=== PATIENT | male | born 1950 | race Caucasian/White ===

== ENCOUNTER 2021-02-23 20:25 | Observation (INO) | payer MEDICARE, MEDICAID ==
[~2021-02-23] VITALS: Ht 182.9 cm; Wt 61.1 kg
[2021-02-23] MEDS ORDERED: BENZONATATE 100 MG (TESSALON) CAPSULE PO PRN (20:30)
[2021-02-23] MEDS ORDERED: ONDANSETRON 4 MG/2 ML (SDV) Z0FRAN IV PRN (20:30)
[2021-02-23] MEDS ORDERED: ANTACID SUSP 30 ML UDC (MYLANTA) PO PRN (20:30)
[2021-02-23] MEDS ORDERED: MILK OF MAGNESIA 400 MG/5 ML 30 ML UDC PO PRN (20:30)
[2021-02-23] MEDS: FUROSEMIDE 40 MG/4 ML INJ (LASIX) IV SCH (23:49)
[2021-02-24] VITALS (8 sets, daily range): BP systolic 105–126; BP diastolic 57–79
--- NOTE | 2021-02-24 07:42 | Diagnostic Imaging Report ---
INDICATION: Pneumonia and congestive heart failure. No prior examinations are available for comparison. FINDINGS: There is mild cardiomegaly. There is some venous congestion. There are bilateral perihilar infiltrates. There is no pleural effusion or pneumothorax. Mediastinum is unremarkable. IMPRESSION: Bilateral perihilar infiltrates. Cardiomegaly and some central pulmonary venous congestion. Dictated by: Dictated on workstation # [id number]
[2021-02-24] MEDS: ASPIRIN 81 MG CHEW (CHILDREN'S ASA) PO SCH (08:34)
[2021-02-24] MEDS: FUROSEMIDE 40 MG/4 ML INJ (LASIX) IV SCH ×2 (08:34→21:09)
[2021-02-24] MEDS ORDERED: THIAMINE 100 MG (VITAMIN B-1) TAB PO ONE (10:15)
[2021-02-24] MEDS ORDERED: FOLIC ACID 1 MG TAB PO ONE (10:15)
[2021-02-24 10:27] LABS: HEMATOCRIT 38 % (40-54); MEAN CORPUSCULAR HEMOGLOBIN 29 pg (25-34); MEAN CORPUSCULAR HGB CONC 32 g/dL (32-36); MEAN CORPUSCULAR VOLUME 90 fL (80-99); PLATELET COUNT 454 10^3/uL (130-400)
--- NOTE | 2021-02-24 10:31 | History & Physical-Hospitalist ---
History of Present Illness HPI/Chief Complaint Pt is a 70yoCM with a PMH of a-fib, HTN, chronic alcohol use, tobacco abuse who presented to the ER due to back and shortness of breath. He is an exceptionally poor historian and can tell me very little of his medical history and his acute illness. Most history is obtained from the ER report and by discussing his case with his PCP Doreen Faustin [facility] in [place]. He states he had back pain and that gave him shortness of breath. Otherwise he has no complaints. We discussed his imaging from [place] and concern for cancer. He tells me that it is not cancer. When asked if he has had a biopsy he said no. I spoke with his PCNP who states he has had a biopsy done and they thought the lung mass was due to infection. She did not have culture results available. She reports he is supposed to have a lobectomy done and is off anticoagulation for that surgery but he has not called his insurance to get it approved. Source: patient Date Seen 02/24/21 Time Seen by a Provider: 10:08 Attending Physician Cheri Cox MD PCP No,Local Physician Referring Physician Date of Admission Feb 23, 2021 at 23:06 Home Medications & Allergies Home Medications Reviewed patient Home Medication Reconciliation performed by pharmacy medication reconciliations petroleum laboratory technician and/or nursing. Patients Allergies have been reviewed. Allergies Allergies Coded Allergies No Known Drug Allergies (Unverified02/24/21) Past Nlgeosz-Kztgeb-Nyqygp Hx Patient Social History Tobacco Use?: Yes Tobacco type used: Cigarettes Smoking Status: Current Everyday Smoker Use of E-Cig and/or Vaping dev: No Substance use?: No Substance frequency: Daily Alcohol Use?: Yes Alcohol type: Beer Alcohol Frequency: Once in a while Pt feels they are or have been: No Immunizations Up To Date First/Initial COVID19 Vaccinat: Has not had- declined Current Status Advance Directives: No Communicates: Verbally Primary Language: Slovak Preferred Spoken Language: Slovak Family Medical History Reviewed Nursing Family Hx No Pertinent Family Hx Review of Systems Constitutional: no symptoms reported Physical Exam Physical Exam Vital Signs Vital Signs - First Documented 02/23/21 02/24/21 02/24/21 23:06 00:00 04:16 Temp 36.2 Pulse 72 Resp 20 B/P (MAP) 112/71 (85) Pulse Ox 92 O2 Delivery Room Air O2 Flow Rate 2.00 Capillary Refill : Height, Weight, BMI Height: '" Weight: lbs. oz. kg; 18.80 BMI Method: General Appearance: No Apparent Distress, Chronically ill, Thin HEENT: PERRL/EOMI, Moist Mucous Membranes Neck: Normal Inspection, Supple Respiratory: Lungs Clear, No Accessory Muscle Use Cardiovascular: Regular Rate, Rhythm, No Murmur Gastrointestinal: Normal Bowel Sounds, Soft Extremity: Normal Capillary Refill, No Calf Tenderness, No Pedal Edema Neurologic/Psychiatric: Alert, Oriented x3 Skin: Normal Color, Warm/Dry Results Results/Procedures Labs Patient resulted labs reviewed. Imaging: Reviewed Imaging Report Imaging [facility] [place], [place] NAME: TRUDY VANG [facility] REC#: [id number] PT STATUS: ADM Regan : 1950 PHYSICIAN: CHERI COX MD ADMIT DATE: 02/23/21 Signed Date of Exam:02/24/21 CHEST 1 VIEW, AP/PA ONLY INDICATION: Pneumonia and congestive heart failure. No prior examinations are available for comparison. FINDINGS: There is mild cardiomegaly. There is some venous congestion. There are bilateral perihilar infiltrates. There is no pleural effusion or pneumothorax. Mediastinum is unremarkable. IMPRESSION: Bilateral perihilar infiltrates. Cardiomegaly and some central pulmonary venous congestion. Dictated by: Dictated on workstation # [id number] Dict: 02/24/21 0738 Trans: 02/24/21 0825 [id number] Interpreted by: GIANCARLO AMBRIZ MD Electronically signed by: GIANCARLO AMBRIZ MD 02/24/21 0825 Assessment/Plan Admission Diagnosis CHF exacerbation Admission Status: Observation Reason for Inpatient Admission: see below Assessment and Plan CHF exacerbation HTN A-fib Continue IV lasix Cardiology consulted, appreciate recs Echo pending Discussed with Dr John Continue home meds but Eliquis on hold for lobectomy per his [facility] Lung mass Unclear etiology Per report from ER physician desiree neoplastic on imaging [facility] CR[facility]HER reported infectious etiology but cultures negative and he is not on antibiotis as an outpatient Will attempt to have imaging clouded over from [place] Has follow up with Dr Diallo for lobectomy Hypokalemia will replace Check Mag Alcohol abuse Will start on thiamine, folic acid CHERI COX MD Feb 24, 2021 10:31
[2021-02-24 10:46] LABS: CREATININE SERUM 1.03 MG/DL (0.60-1.30)
[2021-02-24] MEDS ORDERED: KCL 20 MEQ TAB (K-DUR) PO NR (14:45)
[2021-02-24] MEDS ORDERED: RT-ALBUTEROL/IPRATROPIUM 3 ML (DUONEB) VIAL INH PRN (16:45)
--- NOTE | 2021-02-24 18:09 | Consultation-Cardiology ---
HPI-Cardiology Cardiology Consultation: Date of Consultation 02/24/2021 Date of Admission 02/23/2021 Attending Physician Holly Cox MD Admitting Physician No,Local Physician Consulting Physician VISHAL HAMILTON JR, MD HPI: Time Seen by a Provider: 18:05 Chief Complaint: Reason for consultation: Heart failure. Christopher is a 70-year-old male with a history of atrial fibrillation of unknown duration. He presented to the hospital in [place], [place] with increasing shortness of breath and some atypical chest discomfort. He was felt to be in heart failure and was transferred to our facility for further evaluation. He states he follows with a board of directors in [place] but he cannot remember the name. When I saw the pa ulises in medical/surgical unit he stated that his breathing had improved. However, he is very vague about his medical history and the events leading up to his hospitalization. He denies paroxysmal nocturnal dyspnea, orthopnea, palpitations, lightheadedness, syncope, or lower extremity edema. However, due to his poor recollection, his answers may not be reliable. He smokes approxima tely 1 pack of cigarettes per day. Review of Systems-Cardiology Review of Systems Other comments Review of 10 organ systems is as per the history of present illness, otherwise negative. However, as above, given his poor recall, his answers may not be reliable. HRX-Ltzvrs-Hyaceh Hx Patient Social History Smoking Status: Current Everyday Smoker Have you traveled recently?: No Alcohol Use?: Yes Pt feels they are or have been: No Tobacco type used: Cigarettes Past Medical History PMH As described under Assessment. Family Medical History Family Medical History: The patient does not know of any family history of premature coronary artery disease. Allergies and Home Medications Allergies Coded Allergies: No Known Drug Allergies (Unverified , 02/24/21) Patient Home Medication List Home Medication List Reviewed: Yes Exam Vital Signs Vital Signs Date Time Temp Pulse Resp B/P (MAP) Pulse Ox O2 Delivery O2 Flow Rate FiO2 02/24/21 16:34 36.4 89 90 21 02/24/21 15:06 22 109/58 (75) Room Air 02/24/21 04:16 2.00 Physical Exam General: Alert. No acute distress. Well nourished and appears stated age. He is disheveled. Eye: Extraocular movements are intact. Conjunctivae are clear. There are no xanthelasma. HENT: Normocephalic. Atraumatic. Carotid pulsations 2/2 without bruits. Neck: Jugular venous pressure does not appear elevated. No thyromegaly appreciated. Respiratory: Lungs have scattered inspiratory wheezes. Respirations are non- labored. Breath sounds are equal. Symmetrical chest wall expansion. Cardiovascular: Normal rate. Irregular rhythm. No murmur. No gallop. Point of maximal impulse is not appear displaced. Good pulses equal in all extremities. No edema. Gastrointestinal: Soft. Normal bowel sounds. Skin: Skin turgor is normal. There is no pallor. Musculoskeletal: No kyphosis or scoliosis appreciated. Neurologic: Alert and oriented to person, place, time. Cranial nerves 3-12 appear grossly intact. The patient has good motor tone strength in the upper and lower extremities bilaterally. Psychiatric: Cooperative. Appropriate mood & affect. Labs Laboratory Tests Test 02/24/21 10:15 Range/Units White Blood Count 19.0 H 4.3-11.0 10^3/uL Red Blood Count 4.21 L 4.30-5.52 10^6/uL Hemoglobin 12.0 L 13.3-17.7 g/dL Hematocrit 38 L 40-54 % Mean Corpuscular Volume 90 80-99 fL Mean Corpuscular Hemoglobin 29 25-34 pg Mean Corpuscular Hemoglobin Concent 32 32-36 g/dL Red Cell Distribution Width 15.9 H 10.0-14.5 % Platelet Count 454 H 130-400 10^3/uL Mean Platelet Volume 10.0 9.0-12.2 fL Sodium Level 134 L 135-145 MMOL/L Potassium Level 3.0 L 3.6-5.0 MMOL/L Chloride Level 90 L 98-107 MMOL/L Carbon Dioxide Level 32 21-32 MMOL/L Anion Gap 12 5-14 MMOL/L Blood Urea Nitrogen 21 H 7-18 MG/DL Creatinine 1.03 0.60-1.30 MG/DL Estimat Glomerular Filtration Rate 72 BUN/Creatinine Ratio 20 Glucose Level 111 H 70-105 MG/DL Calcium Level 12.0 H 8.5-10.1 MG/DL Magnesium Level 1.7 1.6-2.4 MG/DL Radiology ECHOCARDIOGRAM (02/24/2021): 1. Normal left ventricular chamber size and wall thickness with hyperdynamic left ventricular systolic function with an estimated ejection fraction of 70- 75%. 2. The left ventricular diastolic function is indeterminate. 3. The estimated pulmonary artery pressure is 39 mmHg. ECG Impression ECG Comment Electrocardiogram is pending. I cannot locate any records from the outside hospital other than a facesheet in the computer. His telemetry shows probable atrial fibrillation. Diagnosis/Problems Diagnosis/Problems (1) Acute diastolic congestive heart failure Assessment & Plan: His chest x-ray shows evidence of pulmonary congestion. His ejection fraction is normal. There was no significant valvular heart disease noted on his echocardiogram. I suspect he has heart failure with preserved ejection fraction. He has been ordered for IV Lasix by the hospitalist. I will order a follow-up chest x-ray for the morning. (2) Persistent atrial fibrillation Assessment & Plan: His telemetry shows probable atrial fibrillation. He has a history of atrial fibrillation. I have ordered an electrocardiogram. Unclear whether or not he is on oral anticoagulation. Given his history of alcohol abuse, he may not be an ideal candidate for lifelong anticoagulation due to fall risk related to alcohol abuse. (3) Pulmonary hypertension Assessment & Plan: His echocardiogram shows mild pulmonary hypertension. I suspect the majority of this is related to his smoking and probable underlying chronic obstructive pulmonary disease. (4) Cigarette smoker Assessment & Plan: He needs to quit smoking. He was counseled in this regard. VISHAL HAMILTON JR, MD Feb 24, 2021 18:09
[2021-02-24] MEDS: RT-ALBUTEROL/IPRATROPIUM 3 ML (DUONEB) VIAL INH SCH (20:57)
[2021-02-24] MEDS: ACETAMINOPHEN 500 MG TAB (TYLENOL) PO PRN (21:10)
[2021-02-24] MEDS: MELATONIN 3 MG TABLET PO PRN (21:26)
[2021-02-24] MEDS ORDERED: LORazepam INJ 2 MG/ML (ATIVAN) VIAL IM/IV PRN (22:45)
[2021-02-24] MEDS ORDERED: LORazepam INJ 2 MG/ML (ATIVAN) VIAL IV PRN (22:45)
[2021-02-24] MEDS ORDERED: LORazepam 1 MG (ATIVAN) TAB PO PRN (22:45)
[2021-02-24] MEDS ORDERED: 1/2 NS IV SOLUTION 1,000 ML IV PRN (22:45)
[2021-02-25] MEDS: RT-ALBUTEROL/IPRATROPIUM 3 ML (DUONEB) VIAL INH SCH ×4 (03:23→22:31)
[2021-02-25 03:46] VITALS: BP 133/60
[2021-02-25 05:38] LABS: BASOPHILS # (AUTO) 0.1 10^3/uL (0.0-0.1); BASOPHILS % (AUTO) 0 % (0-10); EOSINOPHILS # (AUTO) 0.1 10^3/uL (0.0-0.3); EOSINOPHILS % (AUTO) 1 % (0-10); HEMATOCRIT 34 % (40-54); HEMOGLOBIN 10.9 g/dL (13.3-17.7); LYMPHOCYTES # (AUTO) 1.4 10^3/uL (1.0-4.0); LYMPHOCYTES % (AUTO) 7 % (12-44); MEAN CORPUSCULAR HEMOGLOBIN 29 pg (25-34); MEAN CORPUSCULAR HGB CONC 32 g/dL (32-36); MEAN CORPUSCULAR VOLUME 90 fL (80-99); MEAN PLATELET VOLUME 10.2 fL (9.0-12.2); MONOCYTES # (AUTO) 1.4 10^3/uL (0.0-1.0); MONOCYTES % (AUTO) 7 % (0-12); NEUTROPHILS # (AUTO) 16.2 10^3/uL (1.8-7.8); NEUTROPHILS % (AUTO) 84 % (42-75); PLATELET COUNT 381 10^3/uL (130-400); WHITE BLOOD COUNT 19.3 10^3/uL (4.3-11.0)
[2021-02-25 05:48] LABS: POTASSIUM 2.9 MMOL/L (3.6-5.0)
[2021-02-25 05:49] LABS: ALBUMIN 2.6 GM/DL (3.2-4.5)
[2021-02-25 05:50] LABS: CALCIUM 11.8 MG/DL (8.5-10.1)
[2021-02-25 05:53] LABS: BILIRUBIN,TOTAL 0.3 MG/DL (0.1-1.0)
[2021-02-25 05:55] LABS: CREATININE SERUM 0.9 MG/DL (0.60-1.30)
[2021-02-25 05:58] LABS: HYPOCHROMASIA SLIGHT; LYMPHOCYTES % (MANUAL) 7 %; MAGNESIUM 1.7 MG/DL (1.6-2.4); MONOCYTES % (MANUAL) 2 %; NEUTROPHILS % (MANUAL) 91 %
[2021-02-25 07:28] VITALS: BP 131/83
[2021-02-25] MEDS: ASPIRIN 81 MG CHEW (CHILDREN'S ASA) PO SCH (08:09)
[2021-02-25] MEDS: FOLIC ACID 1 MG TAB PO SCH (08:09)
[2021-02-25] MEDS: THIAMINE 100 MG (VITAMIN B-1) TAB PO SCH (08:09)
[2021-02-25] MEDS ORDERED: KCL 20 MEQ TAB (K-DUR) PO NR ×2 (08:23→10:15)
--- NOTE | 2021-02-25 08:30 | Diagnostic Imaging Report ---
EXAM: CHEST 1 VIEW, AP/PA ONLY INDICATION: Shortness of air. COMPARISON: Chest radiograph 02/24/2021. FINDINGS: Cardiomegaly. Normal central pulmonary vascularity. Bilateral interstitial and airspace opacities remain greater on the left. No pleural effusion or pneumothorax. No significant change. IMPRESSION: Stable cardiomegaly and bilateral pulmonary infiltrates, greater on the left. Dictated by: Dictated on workstation # [id number]
--- NOTE | 2021-02-25 10:11 | Physical Therapy Evaluation ---
PT Evaluation-General Medical Diagnosis Admission Date Feb 23, 2021 at 23:06 Medical Diagnosis: CHF Onset Date: Feb 23, 2021 Therapy Diagnosis Therapy Diagnosis: debility/weakness Precautions Precautions/Isolations: Fall Prevention, Standard Precautions Referral Physician: Manju Reason for Referral: Evaluation/Treatment Medical History Pertinent Medical History: Atrial Fib, Alcoholism, HTN, Smoking Current History ER secondary to SOA Reviewed History: Yes Social History Home: Single Level Current Living Status: roommate Prior Prior Level of Function SCALE: Activities may be completed with or without assistive devices. 7-Tjtnvnqhud-vfflwwy completes the activity by him/herself with no assistance from a helper. 5-Set-up or Clean-up Assistance-helper sets up or cleans up; patient completes activity. [place] assists only prior to or following the activity. 4-Supervision or Touching Assistance-helper provides verbal cues and/or touching/steadying and/or contact guard assistance as patient completes ac tivity. Assistance may be provided throughout the activity or intermittently. 3-Partial/Moderate Assistance-helper does LESS THAN HALF the effort. Mellette lifts, holds or supports trunk or limbs, but provides less than half the effort. 2-Substantial/Maximal Assistance-helper does MORE THAN HALF the effort. Mel[place] lifts or holds trunk or limbs and provides more than half the effort. 6-Ktuwoeums-vkcgas does ALL the effort. Patient does none of the effort to complete the activity. Or, the assistance of 2 or more helpers is required for the patient to complete the activity. If activity was not attempted, code reason: 7-Patient Refused. 9-Not Applicable-not attempted and the patient did not perform the activity before the current illness, exacerbation or injury. 10-Not Attempted due to Environmental Limitations-(lack of equipment, weather restraints, etc.). 88-Not Attempted due to Medical Conditions or Safety Concerns. Bed Mobility: 6 Transfers (B,C,W/C): 6 Gait: 6 Indoor Mobility (Ambulation): Independent Stairs: Independent Prior Devices Use: Walker Prior Device Use: cane PT Evaluation-Current Subjective Patient agrees to PT. Objective Patient Orientation: Person, Time ROM/Strength ROM Lower Extremities bilateral LE WFL Strength Lower Extremities 3/5 grossly bilateral LE Integumentary/Posture Integumentary refer to nursing notes Bowel Incontinence: Yes Bladder Incontinence: Yes Posture kyphotic Neuromuscular (Tone, Coordination, Reflexes) diminished coordination with all Sensory Vision: Functional Hearing: Impaired Transfers Lying to Sitting/Side of Bed(Q: 3 Sit to Stand (QC): 3 Chair/Sbi-wl-Fjbsc Xfer(QC): 3 Gait Does the Patient Walk?: Yes Mode of Locomotion: Walk Anticipated Mode of Locomotion: Walk Walk 10 feet (QC): 3 Walk 50 ft with 2 Turns(QC): 3 Walk 150 ft (QC): 88 Distance: 50' Gait Assistive Device: FWW Comments/Gait Description slightly unsteady with PT correct Wheelchair Training Does the Pt Use a Wheelchair?: No Balance Sitting Static: Normal Sitting Dynamic: Normal Standing Static: Fair Standing Dynamic: Fair Assessment/Needs 70 y.o. male, will benefit from skilled PT to address functional strength and m obility to improve current LOF. Patient is severely debilitated and from a PT standpoint, would benefit from extended care facility due to severe impairment. Patient incontinent urine requiring assist to cleanse and change clothing. Rehab Potential: Guarded PT Hog Worker Goals Hog Worker Goals PT Jail Goals Time Frame: Mar 08, 2021 Roll Left & Right (QC): 4 Sit to Lying (QC): 4 Lying-Sitting on Side/Bed(QC): 4 Sit to Stand (QC): 4 Chair/Awf-hj-Gvntw Xfer(QC): 4 Toilet Transfer (QC): 4 Does the Patient Walk: Yes Walk 10 feet (QC): 4 Walk 50ft with 2 Turns (QC): 4 Walk 150 ft (QC): 4 PT Plan Problem List Problem List: Activity Tolerance, Functional Strength, Safety, Balance, Gait, Transfer, Bed Mobility Treatment/Plan Treatment Plan: Continue Plan of Care Treatment Plan: Bed Mobility, Education, Functional Activity Thompson, Functional Strength, Gait, Safety, Therapeutic Exercise, Transfers Treatment Duration: Mar 08, 2021 Frequency: 6 times per week Estimated Hrs Per Day: .25 hour per day Patient and/or Family Agrees t: Yes Time/GCodes Time In: 830 Time Out: 847 Total Billed Treatment Time: 17 Total Billed Treatment 1 visit EVModC 17 min FRANSICO NAVA PT Feb 25, 2021 10:11
[2021-02-25] MEDS ORDERED: POTA10TA PO (11:00)
[2021-02-25] MEDS ORDERED: CALC500T35 PO (11:00)
[2021-02-25] MEDS ORDERED: FAMO20TA5 PO (11:00)
[2021-02-25] MEDS ORDERED: DIGO125T3 PO (11:00)
[2021-02-25] MEDS ORDERED: MONT10TA32 PO (11:00)
[2021-02-25] MEDS ORDERED: FURO40TA4 PO (11:00)
[2021-02-25] MEDS ORDERED: DILT60TA PO (11:00)
[2021-02-25] MEDS ORDERED: CARV12.53 PO (11:00)
[2021-02-25 11:40] VITALS: BP 139/70
--- NOTE | 2021-02-25 14:58 | Occupational Therapy Eval ---
OT Evaluation-General/PLF Medical Diagnosis Admission Date Feb 23, 2021 at 23:06 Medical Diagnosis: CHF exacerbation, SOA Onset Date: Feb 23, 2021 Therapy Diagnosis Therapy Diagnosis: Weakness, Decreased ADL skills Precautions Precautions/Isolations: Fall Prevention, Standard Precautions Weight Bear Status Weight Bearing Restriction: Weight Bearing/Tolerated Referral Physician: Manju Referral Reason: Activity Tolerance, Self Care, Evaluation/Treatment, Strengthening/ROM Medical History Pertinent Medical History: Atrial Fib, Alcoholism, HTN, Smoking Additional Medical History Lung mass, Stage 2-3 pressure ulcers on bilateral gluteal cleft Current History Pt. came to ER SOA. Reviewed History: Yes Social History Home: Single Level Current Living Status: roommate Entry Into Home: Level Entry ADL-Prior Level of Function SCALE: Activities may be completed with or without assistive devices. 4-Himjfmfrdw-hfsrxqp completes the activity by him/herself with no assistance from a helper. 5-Set-up or Clean-up Assistance-helper sets up or cleans up; patient completes activity. [place] assists only prior to or following the activity. 4-Supervision or Touching Assistance-helper provides verbal cues and/or touching/steadying and/or contact guard assistance as patient completes activity. Assistance may be provided throughout the activity or intermittently. 3-Partial/Moderate Assistance-helper does LESS THAN HALF the effort. [place] lifts, holds or supports trunk or limbs, but provides less than half the effort. 2-Substantial/Maximal Assistance-helper does MORE THAN HALF the effort. [place] lifts or holds trunk or limbs and provides more than half the effort. 6-Aalpfglcv-aguond does ALL the effort. Patient does none of the effort to complete the activity. Or, the assistance of 2 or more helpers is required for the patient to complete the activity. If activity was not attempted, code reason: 7-Patient Refused. 9-Not Applicable-not attempted and the patient did not perform the activity before the current illness, exacerbation or injury. 10-Not Attempted due to Environmental Limitations-(lack of equipment, weather restraints, etc.). 88-Not Attempted due to Medical Conditions or Safety Concerns. ADL PLOF Comments Pt. states that he has two roommates that help with cooking and cleaning. They also help him with dressing as needed, and he bathes himself. He uses a walker, and started using a wheelchair two days ago. Pt. does not give OT any other history. Self Care: Unknown Functional Cognition: Unknown DME/Equipment Comments Pt. states that he has a walker and wheelchair. He lives in [place] OT Current Status Subjective Pt. does not report pain level. Appearance Pt. up in chair. Agrees to work with OT. Mental Status/Objective Patient Orientation: Person Current Upper Extremity ROM Limited at shoulder level. ADL-Treatment On/Off Footwear (QC): 3 Other Treatments Pt. up in chair. He is difficult to understand verbally. He is wearing brief and hospital gown. OT introduces self. Pt. declines showering, and is able to state that he got cleaned up earlier. Pt. is able to doff slipper socks, but unable to don them. He agrees to ambulate in room. Transfers sit-stand with walker with CGA. Ambulates to door with CGA/min assist and unsteady gait. Pt. requests to lay in bed. Able to transfer to bed with SBA. All needs met. Education OT Patient Education: Correct positioning, Modified ADL techniques, Progress toward Goal/Update tx plan, Purpose of tx/functional activities, Reviewed precautions, Rehab process, Transfer techniques Teaching Recipient: Patient Teaching Methods: Demonstration, Discussion Response to Teaching: Verbalize Understanding, Reinforcement Needed OT Short Term Goals Short Term Goals Time Frame: Mar 04, 2021 Eatin Oral hygiene: 4 Toileting hygiene: 4 Shower/bathe self: 3 Upper body dressin Lower body dressin Putting on/taking off footwear: 4 OT Astrobiologist Goals Prison Goals Time Frame: Mar 11, 2021 Eating (QC): 6 Oral Hygiene (QC): 6 Toileting Hygiene (QC): 6 Shower/Bathe Self (QC): 4 Upper Body Dressing (QC): 5 Lower Body Dressing (QC): 4 On/Off Footwear (QC): 6 Additional Goals: 1-Demonstrate ADL Tasks, 2-Verbalize Understanding, 3- ImproveStrength/Thompson 1=Demonstrate adherence to instructed precautions during ADL tasks. 2=Patient will verbalize/demonstrate understanding of assistive devices/modifications for ADL. 3=Patient will improve strength/tolerance for activity to enable patient to perform ADL's. OT Education/Plan Problem List/Assessment Assessment: Decreased Activ Tolerance, Dependent Transfers, Impaired Funct Balance, Impaired I ADL's, Impaired Self-Care Skills, Restricted Funct UE ROM Discharge Recommendations Plan/Recommendations: Continue POC Treatment Plan/Plan of Care Treatment,Training & Education: Yes Patient would benefit from OT for education, treatment and training to promote independence in ADL's, mobility, safety and/or upper extremity function for ADL's. Plan of Care: ADL Retraining, Functional Mobility, UE Funct Exercise/Act Treatment Duration: Mar 11, 2021 Frequency: 5 times per week Rehab Potential: Guarded Time/GCodes Start Time: 10:05 Stop Time: 10:18 Total Time Billed (hr/min): 13 Billed Treatment Time 1, TASHA MERLOS OT Feb 25, 2021 14:58
[2021-02-25 16:00] VITALS: BP 123/73
--- NOTE | 2021-02-25 16:38 | Progress Note - Hospitalist ---
Subjective HPI/CC On Admission Date Seen by Provider: Feb 25, 2021 Time Seen by Provider: 09:15 Pt is a 70yoCM with a PMH of a-fib, HTN, chronic alcohol use, tobacco abuse who presented to the ER due to back and shortness of breath. He is an exceptionally poor historian and can tell me very little of his medical history and his acute illness. Most history is obtained from the ER report and by discussing his case with his PCP Doreen Faustin INFORMATICA MDM ARCHITECT in [place]. He states he had back pain and that gave him shortness of breath. Otherwise he has no complaints. We discussed his imaging from [place] and concern for cancer. He tells me that it is not cancer. When asked if he has had a biopsy he said no. I spoke with his PCNP who states he has had a biopsy done and they thought the lung mass was due to infection. She did not have culture results available. She reports he is supposed to have a lobectomy done and is off anticoagulation for that surgery but he has not called his insurance to get it approved. Subjective/Events-last exam He is doing better today. He is not short of breath. He still has a cough which is chronic. He denies fevers. He has not been getting around very well. Focused Exam Lactate Level 02/25/21 05:30: Lactic Acid Level 1.89 Objective Exam Vital Signs Vital Signs Date Time Temp Pulse Resp B/P (MAP) Pulse Ox O2 Delivery O2 Flow Rate FiO2 02/25/21 15:36 92 Room Air 02/25/21 13:00 106 02/25/21 11:40 36.3 18 139/70 (93) 02/24/21 16:34 21 02/24/21 04:16 2.00 Capillary Refill : General Appearance: No Apparent Distress, Chronically ill, Thin Respiratory: No Respiratory Distress, Wheezing Cardiovascular: Regular Rate, Rhythm, No Edema, No Murmur Gastrointestinal: Normal Bowel Sounds, Non Tender, Soft Extremity: Normal Inspection, Non Tender, No Pedal Edema Neurologic/Psychiatric: Alert, Depressed Affect, Motor Weakness Skin: Normal Color, Warm/Dry Results/Procedures Lab Laboratory Tests 02/25/21 05:30 Patient resulted labs reviewed. Imaging: Reviewed Imaging Report Assessment/Plan Assessment and Plan Assess & Plan/Chief Complaint Acute on chronic heart failure with preserved ejection fraction HTN A-fib Cardiology consulted, appreciate recs Echo with normal EF, diastolic function indeterminate Stop Lasix Continue home meds but Eliquis on hold for lobectomy per his INFORMATICA MDM ARCHITECT Lung mass Unclear etiology Per report from ER physician appears neoplastic on imaging INFORMATICA MDM ARCHITECT reported infectious etiology but cultures negative and he is not on antibiotis as an outpatient Reportedly has follow up with Dr Diallo for lobectomy Hypokalemia Hyponatremia Hypercalcemia Monitor and replace electrolytes as needed Alcohol abuse Thiamine, folic acid Debility PT/OT Social work assisting with placement DVT prophylaxis: Lovenox Diagnosis/Problems Diagnosis/Problems (1) Acute diastolic congestive heart failure Status: Acute LISA CORTEZ MD Feb 25, 2021 16:38
[2021-02-25] MEDS: ENOXAPARIN 30 MG/0.3 ML (LOVENOX) SYR SC SCH (17:11)
--- NOTE | 2021-02-25 17:34 | Cardiology Progress Note ---
Progress Note-Cardiology Events since last exam Date Seen by Provider: Feb 25, 2021 Time Seen by Provider: 17:29 Events since last exam I am following him for possible heart failure. He denies shortness of breath, chest pain, palpitations, syncope, or ankle edema. Certain portions of this document may have been dictated utilizing voice recognition technology. Inherent to this technology, typographical and grammatical errors may exist. As much as I am diligent to identify and correct these mistakes, some errors may remain in the document. Vitals Last set of Vitals Signs Vital Signs 02/24/21 02/24/21 02/25/21 04:16 16:34 16:00 Temp 36.2 Pulse 97 Resp 18 B/P (MAP) 123/73 (90) Pulse Ox 93 O2 Delivery Room Air O2 Flow Rate 2.00 FiO2 21 Labs Labs Laboratory Tests 02/25/21 05:30 Exam Vital Signs Vital Signs Date Time Temp Pulse Resp B/P (MAP) Pulse Ox O2 Delivery O2 Flow Rate FiO2 02/25/21 16:00 36.2 97 18 123/73 (90) 93 Room Air 02/24/21 16:34 21 02/24/21 04:16 2.00 Physical Exam General: Alert. No acute distress. He is underweight. He is disheveled. Eye: No xanthelasma. HENT: Normocephalic. Neck: Jugular venous pressure does not appear elevated. Respiratory: Lungs are clear to auscultation. Respirations are non-labored. Breath sounds are equal. Symmetrical chest wall expansion. Cardiovascular: Normal rate. Regular rhythm. No murmur. No gallop. No edema. Gastrointestinal: Soft. Normal bowel sounds. Skin: Warm. Dry. Neurologic: Alert and oriented to person, place, time. Cranial nerves 3-11 grossly intact. Psychiatric: Cooperative. Appropriate mood & affect. Labs Laboratory Tests Test 02/25/21 05:30 02/25/21 13:03 Range/Units White Blood Count 19.3 H 4.3-11.0 10^3/uL Red Blood Count 3.77 L 4.30-5.52 10^6/uL Hemoglobin 10.9 L 13.3-17.7 g/dL Hematocrit 34 L 40-54 % Mean Corpuscular Volume 90 80-99 fL Mean Corpuscular Hemoglobin 29 25-34 pg Mean Corpuscular Hemoglobin Concent 32 32-36 g/dL Red Cell Distribution Width 15.9 H 10.0-14.5 % Platelet Count 381 130-400 10^3/uL Mean Platelet Volume 10.2 9.0-12.2 fL Immature Granulocyte % (Auto) 1 % Neutrophils (%) (Auto) 84 H 42-75 % Lymphocytes (%) (Auto) 7 L 12-44 % Monocytes (%) (Auto) 7 0-12 % Eosinophils (%) (Auto) 1 0-10 % Basophils (%) (Auto) 0 0-10 % Neutrophils # (Auto) 16.2 H 1.8-7.8 10^3/uL Lymphocytes # (Auto) 1.4 1.0-4.0 10^3/uL Monocytes # (Auto) 1.4 H 0.0-1.0 10^3/uL Eosinophils # (Auto) 0.1 0.0-0.3 10^3/uL Basophils # (Auto) 0.1 0.0-0.1 10^3/uL Immature Granulocyte # (Auto) 0.1 0.0-0.1 10^3/uL Neutrophils % (Manual) 91 % Lymphocytes % (Manual) 7 % Monocytes % (Manual) 2 % Hypochromasia SLIGHT Sodium Level 133 L 135-145 MMOL/L Potassium Level 2.9 L 3.6-5.0 MMOL/L Chloride Level 88 L 98-107 MMOL/L Carbon Dioxide Level 30 21-32 MMOL/L Anion Gap 15 H 5-14 MMOL/L Blood Urea Nitrogen 20 H 7-18 MG/DL Creatinine 0.90 0.60-1.30 MG/DL Estimat Glomerular Filtration Rate 84 BUN/Creatinine Ratio 22 Glucose Level 93 70-105 MG/DL Lactic Acid Level 1.89 0.50-2.00 MMOL/L Calcium Level 11.8 H 8.5-10.1 MG/DL Corrected Calcium 12.9 H 8.5-10.1 MG/DL Magnesium Level 1.7 1.6-2.4 MG/DL Total Bilirubin 0.3 0.1-1.0 MG/DL Aspartate Amino Transf (AST/SGOT) 18 5-34 U/L Alanine Aminotransferase (ALT/SGPT) 20 0-55 U/L Alkaline Phosphatase 131 40-136 U/L Total Protein 6.0 L 6.4-8.2 GM/DL Albumin 2.6 L 3.2-4.5 GM/DL Triglycerides Level 125 <150 MG/DL Cholesterol Level 149 < 200 MG/DL LDL Cholesterol Direct 106 1-129 MG/DL VLDL Cholesterol 25 5-40 MG/DL HDL Cholesterol 29 L 40-60 MG/DL Procalcitonin 0.23 H <0.10 NG/ML SARS-CoV-2 RNA (RT-PCR) Not Detected Not Detecte Diagnosis/Problems Diagnosis/Problems (1) Acute diastolic congestive heart failure Status: Acute Assessment & Plan: His chest x-ray from admission showed evidence of pulmonary congestion and today is unchanged. Some of these abnormalities may be due to chronic underlying disease. His ejection fraction is normal. There was no signif icant valvular heart disease noted on his echocardiogram. I suspect he has heart failure with preserved ejection fraction.The hospitalist has now discontinued the intravenous furosemide. This is not unreasonable. The patient is now awaiting placement to inpatient rehab. At this point time, there do not appear to be an acute, active cardiac issues. As such, cardiology will sign off. Please call if you have other questions or concerns. (2) Persistent atrial fibrillation Assessment & Plan: His telemetry shows probable atrial fibrillation. He has a history of atrial fibrillation. His warfarin is presently on hold due to his need for lung surgery. If he is not going to have lung surgery in the near future, one might consider resuming oral anticoagulation. (3) Pulmonary hypertension Assessment & Plan: His echocardiogram showed mild pulmonary hypertension. I suspect the majority of this is related to his smoking and probable underlying chronic obstructive pulmonary disease. (4) Cigarette smoker Assessment & Plan: He needs to quit smoking. He was counseled in this regard. VISHAL HAMILTON JR, MD Feb 25, 2021 17:34
[2021-02-25 19:07] VITALS: BP 110/75
[2021-02-25] MEDS: MELATONIN 3 MG TABLET PO PRN (21:30)
[2021-02-26] VITALS: BP 110/70
[2021-02-26] MEDS: RT-ALBUTEROL/IPRATROPIUM 3 ML (DUONEB) VIAL INH SCH ×4 (02:12→20:13)
[2021-02-26] MEDS: ACETAMINOPHEN 500 MG TAB (TYLENOL) PO PRN (04:37)
[2021-02-26 04:41] VITALS: BP 118/75
[2021-02-26] MEDS: THIAMINE 100 MG (VITAMIN B-1) TAB PO SCH (06:48)
[2021-02-26 08:00] VITALS: BP 111/73
[2021-02-26 08:52] LABS: BASOPHILS # (AUTO) 0.1 10^3/uL (0.0-0.1); BASOPHILS % (AUTO) 0 % (0-10); EOSINOPHILS # (AUTO) 0.1 10^3/uL (0.0-0.3); EOSINOPHILS % (AUTO) 0 % (0-10); HEMATOCRIT 37 % (40-54); HEMOGLOBIN 11.9 g/dL (13.3-17.7); LYMPHOCYTES # (AUTO) 1.2 10^3/uL (1.0-4.0); LYMPHOCYTES % (AUTO) 6 % (12-44); MEAN CORPUSCULAR HEMOGLOBIN 29 pg (25-34); MEAN CORPUSCULAR HGB CONC 32 g/dL (32-36); MEAN CORPUSCULAR VOLUME 90 fL (80-99); MEAN PLATELET VOLUME 10.3 fL (9.0-12.2); MONOCYTES # (AUTO) 1.2 10^3/uL (0.0-1.0); MONOCYTES % (AUTO) 6 % (0-12); NEUTROPHILS # (AUTO) 17.6 10^3/uL (1.8-7.8); NEUTROPHILS % (AUTO) 87 % (42-75); PLATELET COUNT 414 10^3/uL (130-400); WHITE BLOOD COUNT 20.2 10^3/uL (4.3-11.0)
[2021-02-26] MEDS: ASPIRIN 81 MG CHEW (CHILDREN'S ASA) PO SCH (08:54)
[2021-02-26] MEDS: FOLIC ACID 1 MG TAB PO SCH (08:54)
[2021-02-26 09:05] LABS: POTASSIUM 4.1 MMOL/L (3.6-5.0)
[2021-02-26 09:10] LABS: CREATININE SERUM 1.04 MG/DL (0.60-1.30); PHOSPHORUS 2.7 MG/DL (2.3-4.7)
[2021-02-26 09:13] LABS: MAGNESIUM 1.9 MG/DL (1.6-2.4)
[2021-02-26 09:30] LABS: CALCIUM 13.6 MG/DL (8.5-10.1)
--- NOTE | 2021-02-26 09:41 | Physical Therapy Daily Note ---
PT Daily Note-Current Subjective Patient lying supine in bed upon PT arrival, agreeable to treatment. Patient reports 0/10 pain currently. Mental Status Patient Orientation: Person Transfers SCALE: Activities may be completed with or without assistive devices. 3-Whzwoaqgvg-pfbbcpd completes the activity by him/herself with no assistance from a helper. 5-Set-up or Clean-up Assistance-helper sets up or cleans up; patient completes activity. [place] assists only prior to or following the activity. 4-Supervision or Touching Assistance-helper provides verbal cues and/or touching/steadying and/or contact guard assistance as patient completes activity. Assistance may be provided throughout the activity or intermittently. 3-Partial/Moderate Assistance-helper does LESS THAN HALF the effort. [place] lifts, holds or supports trunk or limbs, but provides less than half the effort. 2-Substantial/Maximal Assistance-helper does MORE THAN HALF the effort. [place] lifts or holds trunk or limbs and provides more than half the effort. 0-Nqpujdogm-qqtjyv does ALL the effort. Patient does none of the effort to complete the activity. Or, the assistance of 2 or more helpers is required for the patient to complete the activity. If activity was not attempted, code reason: 7-Patient Refused. 9-Not Applicable-not attempted and the patient did not perform the activity before the current illness, exacerbation or injury. 10-Not Attempted due to Environmental Limitations-(lack of equipment, weather restraints, etc.). 88-Not Attempted due to Medical Conditions or Safety Concerns. Roll Left & Right (QC): 5 Sit to Lying (QC): 5 Lying to Sitting/Side of Bed(Q: 5 Sit to Stand (QC): 4 Chair/Wlv-et-Qzzvn Xfer(QC): 4 Gait Training Does the Patient Walk?: Yes Distance: 100 feet Walk 10 feet (QC): 4 Walk 50 ft with 2 Turns(QC): 4 Walk 150 ft (QC): 4 Gait Persons Needed: 1 Gait Assistive Device: FWW Patient ambulates with wide [place], shortened stride length bilaterally, and tends to propel himself with little to no hip extension. Patient demonstrates decline in balance with turning and tends to move the FWW without continuing to ambulate during turns. This puts him too far from his FWW and sets up a potential fall risk. Wheelchair Training Does the Pt Use a Wheelchair?: No Treatments Gait training for increased independence, balance and improved function. Assessment Current Status: Fair Progress Patient lying supine in bed upon PT arrival, agreeable to treatment. Patient tolerates treatment fair with improved bed mobility and transfers, improved gait distance and tolerance to activity, however patients observation of obstacles and potential safety issues is diminished. He Requires verbal and tactile cues for safety and to avoid obstacles, and presents an increased fall risk during gait, especially with turning. Patient in chair post treatment with all needs met, nursing notified, chair alarm activated and call light in reach. PT [facility] Goals Senior Litigation Paralegal Goals PT [facility] Goals Time Frame: Mar 08, 2021 Roll Left & Right (QC): 6 Sit to Lying (QC): 6 Lying-Sitting on Side/Bed(QC): 6 Sit to Stand (QC): 5 Chair/Jhn-lv-Pynas Xfer(QC): 5 Toilet Transfer (QC): 5 Does the Patient Walk: Yes Walk 10 feet (QC): 5 Walk 50ft with 2 Turns (QC): 5 Walk 150 ft (QC): 5 Does the Pt use WC or Scooter?: No PT Plan Problem List Problem List: Activity Tolerance, Functional Strength, Safety, Balance, Gait, Transfer Treatment/Plan Treatment Plan: Continue Plan of Care Treatment Plan: Bed Mobility, Education, Functional Activity Thompson, Functional Strength, Gait, Safety, Therapeutic Exercise, Transfers Treatment Duration: Mar 08, 2021 Frequency: 6 times per week Estimated Hrs Per Day: .25 hour per day Patient and/or Family Agrees t: Yes Safety Risks/Education Patient Education: Gait Training, Safety Issues Teaching Recipient: Patient Teaching Methods: Demonstration, Discussion Response to Teaching: Verbalize Understanding Time/GCodes Time In: 930 Time Out: 945 Total Billed Treatment Time: 15 Total Billed Treatment Visit, gait HUNTER WORKMAN PT Feb 26, 2021 09:41
[2021-02-26] MEDS ORDERED: PAMIDRONATE 90 MG/10 ML (AREDIA) IV ONE (10:30)
[2021-02-26] MEDS ORDERED: FUROSEMIDE 40 MG/4 ML INJ (LASIX) IVP ONE (10:30)
[2021-02-26] MEDS: NS IV 1000 ML 1,000 ML IV SCH ×3 (10:35→20:36)
[2021-02-26] MEDS ORDERED: SODIUM CHLORIDE IV ONE ×2 (11:00)
[2021-02-26] MEDS ORDERED: PAMIDRONATE IV ONE ×2 (11:00)
--- NOTE | 2021-02-26 11:31 | Occupational Ther Daily Note ---
OT Current Status-Daily Note Subjective Pt laying in bed, agreeable to OT Tx. OT had difficulty communicating what pt was saying, pt repeated mutliple times. ADL-Treatment Therapy Code Descriptions/Definitions Functional [place] Measure: 0=Not Assessed/NA 4=Minimal Assistance 1=Total Assistance 5=Supervision or Setup 2=Maximal Assistance 6=Modified [place] 3=Moderate Assistance 7=Complete IndependenceSCALE: Activities may be completed with or without assistive devices. 9-Bdwneaseou-qfnwjbw completes the activity by him/herself with no assistance from a helper. 5-Set-up or Clean-up Assistance-helper sets up or cleans up; patient completes activity. [place] assists only prior to or following the activity. 4-Supervision or Touching Assistance-helper provides verbal cues and/or touching/steadying and/or contact guard assistance as patient completes activit y. Assistance may be provided throughout the activity or intermittently. 3-Partial/Moderate Assistance-helper does LESS THAN HALF the effort. [place] lifts, holds or supports trunk or limbs, but provides less than half the effort. 2-Substantial/Maximal Assistance-helper does MORE THAN HALF the effort. [place] lifts or holds trunk or limbs and provides more than half the effort. 4-Dagejafuy-hjqfbc does ALL the effort. Patient does none of the effort to complete the activity. Or, the assistance of 2 or more helpers is required for the patient to complete the activity. If activity was not attempted, code reason: 7-Patient Refused. 9-Not Applicable-not attempted and the patient did not perform the activity before the current illness, exacerbation or injury. 10-Not Attempted due to Environmental Limitations-(lack of equipment, weather restraints, etc.). 88-Not Attempted due to Medical Conditions or Safety Concerns. Eating (QC): 3 (Assist bringing water cup to mouth) Other Treatment Pt laying in bed, in order to increase BUE Strength and activity tolerance, pt completed x10 reps each of the following AAROM exercises: shoulder flexion (RUE shoulder flexion to approx 90 degrees, LUE shoulder flexion to approx 120 degrees), elbow flexion/extension. Pt had difficulty following instructions with exercises, thus AAROM performed. Pt asks for a drink, OT assisted pt with bringing cup to mouth, he was then able to take a drink of water. Post tx, pt laying in bed, call light in reach and all needs met. Education OT Patient Education: Correct positioning, Energy conservation, Exercise program, Modified ADL techniques, Progress toward Goal/Update tx plan, Purpose of tx/functional activities, Rehab process Teaching Recipient: Patient Teaching Methods: Discussion Response to Teaching: Verbalize Understanding OT Short Term Goals Short Term Goals Time Frame: Mar 04, 2021 Eatin Oral hygiene: 4 Toileting hygiene: 4 Shower/bathe self: 3 Upper body dressin Lower body dressin Putting on/taking off footwear: 4 OT Pulp Mill Supervisor Goals Pulp Mill Supervisor Goals Time Frame: Mar 11, 2021 Eating (QC): 6 Oral Hygiene (QC): 6 Toileting Hygiene (QC): 6 Shower/Bathe Self (QC): 4 Upper Body Dressing (QC): 5 Lower Body Dressing (QC): 4 On/Off Footwear (QC): 6 Additional Goals: 1-Demonstrate ADL Tasks, 2-Verbalize Understanding, 3- ImproveStrength/Thompson 1=Demonstrate adherence to instructed precautions during ADL tasks. 2=Patient will verbalize/demonstrate understanding of assistive devices/mod ifications for ADL. 3=Patient will improve strength/tolerance for activity to enable patient to perform ADL's. OT Education/Plan Problem List/Assessment Assessment: Decreased Activ Tolerance, Decreased UE Strength, Impaired Funct Balance, Impaired I ADL's, Impaired Self-Care Skills, Restricted Funct UE ROM Discharge Recommendations Plan/Recommendations: Continue POC Treatment Plan/Plan of Care Patient would benefit from OT for education, treatment and training to promote independence in ADL's, mobility, safety and/or upper extremity function for ADL's. Plan of Care: ADL Retraining, Functional Mobility, UE Funct Exercise/Act Treatment Duration: Mar 11, 2021 Frequency: 5 times per week Rehab Potential: Guarded Time/GCodes Start Time: 11:13 Stop Time: 11:23 Total Time Billed (hr/min): 10 Billed Treatment Time 1, EX CARLTON AGUILAR OT Feb 26, 2021 11:31
--- NOTE | 2021-02-26 11:41 | Progress Note - Hospitalist ---
Subjective HPI/CC On Admission Date Seen by Provider: Feb 26, 2021 Time Seen by Provider: 09:45 Pt is a 70yoCM with a PMH of a-fib, HTN, chronic alcohol use, tobacco abuse who presented to the ER due to back and shortness of breath. He is an exceptionally poor historian and can tell me very little of his medical history and his acute illness. Most history is obtained from the ER report and by discussing his case with his PCP Doreen Faustin SAND MIXER OPERATOR in [place]. He states he had back pain and that gave him shortness of breath. Otherwise he has no complaints. We discussed his imaging from [place] and concern for cancer. He tells me that it is not cancer. When asked if he has had a biopsy he said no. I spoke with his PCNP who states he has had a biopsy done and they thought the lung mass was due to infection. She did not have culture results available. She reports he is supposed to have a lobectomy done and is off anticoagulation for that surgery but he has not called his insurance to get it approved. Subjective/Events-last exam He is feeling about the same. He denies any complaints or concerns. He denies shortness of breath. He denies chest pain or palpitations. He says he is ready to go. Focused Exam Lactate Level 02/25/21 05:30: Lactic Acid Level 1.89 Objective Exam Vital Signs Vital Signs Date Time Temp Pulse Resp B/P (MAP) Pulse Ox O2 Delivery O2 Flow Rate FiO2 02/26/21 08:00 Room Air 02/26/21 07:10 91 02/26/21 07:07 106 02/26/21 04:41 35.6 16 118/75 (89) 02/24/21 16:34 21 02/24/21 04:16 2.00 Capillary Refill : General Appearance: No Apparent Distress, Chronically ill, Thin Respiratory: No Respiratory Distress, Decreased Breath Sounds Cardiovascular: No Murmur, Irregularly Irregular, Tachycardia Gastrointestinal: Normal Bowel Sounds, Non Tender, Soft Extremity: Normal Inspection, Non Tender, No Pedal Edema Neurologic/Psychiatric: Alert, Oriented x3, Motor Weakness Skin: Normal Color, Warm/Dry Results/Procedures Lab Laboratory Tests 02/26/21 08:42 Patient resulted labs reviewed. Imaging: Reviewed Imaging Report Assessment/Plan Assessment and Plan Assess & Plan/Chief Complaint Hypercalcemia Lung mass Liver and bone lesions Likely metastatic lung cancer with hypercalcemia of malignancy Unclear etiology Per report from ER physician appears neoplastic on imaging SAND MIXER OPERATOR reported infectious etiology but cultures negative and he is not on antibiotics as an outpatient Reportedly has an appointment with Dr Diallo for lobectomy Begin IV fluids Resume Lasix Pamidronate Acute on chronic heart failure with preserved ejection fraction HTN A-fib Cardiology consulted, appreciate recs Echo with normal EF, diastolic function indeterminate Continue home meds but Eliquis on hold for lobectomy per his SAND MIXER OPERATOR Resuming Lasix Hyponatremia Monitor Alcohol abuse Thiamine, folic acid Tobacco abuse Nicotine patch as needed Debility PT/OT Social work assisting with placement DVT prophylaxis: Lovenox Hypokalemia, resolved Diagnosis/Problems Diagnosis/Problems (1) Acute diastolic congestive heart failure Status: Acute (2) Hypercalcemia Status: Acute (3) Lung mass Status: Acute (4) Liver lesion Status: Acute (5) Bone lesion Status: Acute (6) Afib Status: Acute Qualifiers: Atrial fibrillation type: persistent (not longstanding) Qualified Codes: I48.19 - Other persistent atrial fibrillation (7) Debility Status: Acute LISA CORTEZ MD Feb 26, 2021 11:41
[2021-02-26] MEDS ORDERED: NICOTINE 14 MG (NICODERM) PATCH TD PRN (11:45)
[2021-02-26 12:00] VITALS: BP 121/77
[2021-02-26 15:35] VITALS: BP 126/72
--- NOTE | 2021-02-26 16:35 | Cardiology Progress Note ---
Progress Note-Cardiology Events since last exam Date Seen by Provider: Feb 26, 2021 Time Seen by Provider: 16:32 Events since last exam I am seeing him due to heart failure and tachycardia/atrial fibrillation. On 02/25 I had signed off because the patient's heart failure seem to have stabilized. Then the this morning the nurse called me because he was having tachycardia. He was asymptomatic with this. When I saw the patient this afternoon he denied palpitations. He denies dyspnea at rest, chest discomfort, s yncope, or ankle edema. Certain portions of this document may have been dictated utilizing voice re cognition technology. Inherent to this technology, typographical and grammatical errors may exist. As much as I am diligent to identify and correct these mistakes, some errors may remain in the document. Vitals Last set of Vitals Signs Vital Signs 02/24/21 02/26/21 16:34 15:35 Temp 36.2 Pulse 92 Resp 20 B/P (MAP) 126/72 (90) Pulse Ox 94 O2 Delivery Nasal Cannula O2 Flow Rate 2.00 FiO2 21 Labs Labs Laboratory Tests 02/26/21 08:42 Exam Vital Signs Vital Signs Date Time Temp Pulse Resp B/P (MAP) Pulse Ox O2 Delivery O2 Flow Rate FiO2 02/26/21 15:35 36.2 92 20 126/72 (90) 94 Nasal Cannula 2.00 02/24/21 16:34 21 Physical Exam General: Alert. No acute distress. He is disheveled. Eye: No xanthelasma. HENT: Normocephalic. He is edentulous. Neck: Jugular venous pressure does not appear elevated. Respiratory: Lungs have scattered wheezes. Respirations are non-labored. Breath sounds are equal. Symmetrical chest wall expansion. Cardiovascular: Normal rate. Irregular rhythm. No murmur. No gallop. No edema. Gastrointestinal: Soft. Normal bowel sounds. Skin: Warm. Dry. Neurologic: Alert and oriented to person, place, time. Cranial nerves 3-11 grossly intact. Psychiatric: Cooperative. Appropriate mood & affect. Labs Laboratory Tests Test 02/26/21 08:42 Range/Units White Blood Count 20.2 H 4.3-11.0 10^3/uL Red Blood Count 4.14 L 4.30-5.52 10^6/uL Hemoglobin 11.9 L 13.3-17.7 g/dL Hematocrit 37 L 40-54 % Mean Corpuscular Volume 90 80-99 fL Mean Corpuscular Hemoglobin 29 25-34 pg Mean Corpuscular Hemoglobin Concent 32 32-36 g/dL Red Cell Distribution Width 15.9 H 10.0-14.5 % Platelet Count 414 H 130-400 10^3/uL Mean Platelet Volume 10.3 9.0-12.2 fL Immature Granulocyte % (Auto) 1 % Neutrophils (%) (Auto) 87 H 42-75 % Lymphocytes (%) (Auto) 6 L 12-44 % Monocytes (%) (Auto) 6 0-12 % Eosinophils (%) (Auto) 0 0-10 % Basophils (%) (Auto) 0 0-10 % Neutrophils # (Auto) 17.6 H 1.8-7.8 10^3/uL Lymphocytes # (Auto) 1.2 1.0-4.0 10^3/uL Monocytes # (Auto) 1.2 H 0.0-1.0 10^3/uL Eosinophils # (Auto) 0.1 0.0-0.3 10^3/uL Basophils # (Auto) 0.1 0.0-0.1 10^3/uL Immature Granulocyte # (Auto) 0.1 0.0-0.1 10^3/uL Sodium Level 132 L 135-145 MMOL/L Potassium Level 4.1 3.6-5.0 MMOL/L Chloride Level 90 L 98-107 MMOL/L Carbon Dioxide Level 29 21-32 MMOL/L Anion Gap 13 5-14 MMOL/L Blood Urea Nitrogen 21 H 7-18 MG/DL Creatinine 1.04 0.60-1.30 MG/DL Estimat Glomerular Filtration Rate 71 BUN/Creatinine Ratio 20 Glucose Level 139 H 70-105 MG/DL Calcium Level 13.6 *H 8.5-10.1 MG/DL Phosphorus Level 2.7 2.3-4.7 MG/DL Magnesium Level 1.9 1.6-2.4 MG/DL Diagnosis/Problems Diagnosis/Problems (1) Persistent atrial fibrillation Assessment & Plan: His telemetry continues to show probable atrial fibrillation. He had an electrocardiogram this morning that did in fact show atrial fibrillation. He has a history of atrial fibrillation. His anticoagulation is presently on hold due to his need for lung surgery. If he is not going to have lung surgery in the near future, one might consider resuming oral anticoagulation. I will start him on beta kadeem due to the tachycardia noted this morning. (2) Acute diastolic congestive heart failure Status: Acute Assessment & Plan: His chest x-ray from admission showed evidence of pulmonary congestion and from 02/25 was unchanged. Some of these abnormalities may be due to chronic underlying disease. His ejection fraction is normal. There was no significant valvular heart disease noted on his echocardiogram. I suspect he has heart failure with preserved ejection fraction.The hospitalist has resumed the intravenous furosemide. This is not unreasonable. The patient is now awaiting placement to inpatient rehab. (3) Pulmonary hypertension Assessment & Plan: His echocardiogram from this admission showed mild pulmonary hypertension. I suspect the majority of this is related to his smoking and probable underlying chronic obstructive pulmonary disease. This can be followed by his regular providers after discharge. (4) Cigarette smoker Assessment & Plan: He needs to quit smoking. He was counseled in this regard. VISHAL HAMILTON JR, MD Feb 26, 2021 16:35
[2021-02-26] MEDS: ENOXAPARIN 30 MG/0.3 ML (LOVENOX) SYR SC SCH (16:58)
[2021-02-26 20:00] VITALS: BP 125/76
[2021-02-27] VITALS (7 sets, daily range): BP systolic 109–151; BP diastolic 72–92
[2021-02-27] MEDS: RT-ALBUTEROL/IPRATROPIUM 3 ML (DUONEB) VIAL INH SCH ×4 (02:16→21:35)
[2021-02-27] MEDS: NS IV 1000 ML 1,000 ML IV SCH ×4 (04:33→16:26)
[2021-02-27] MEDS: THIAMINE 100 MG (VITAMIN B-1) TAB PO SCH (06:14)
[2021-02-27 06:27] LABS: ALBUMIN 2.7 GM/DL (3.2-4.5)
[2021-02-27 06:28] LABS: POTASSIUM 3.2 MMOL/L (3.6-5.0)
[2021-02-27 06:33] LABS: CREATININE SERUM 0.89 MG/DL (0.60-1.30)
[2021-02-27 06:37] LABS: CALCIUM 13.4 MG/DL (8.5-10.1)
[2021-02-27] MEDS: FUROSEMIDE 40 MG/4 ML INJ (LASIX) IVP SCH (09:22)
[2021-02-27] MEDS: NICOTINE PATCH REMOVAL TP SCH (09:22)
[2021-02-27] MEDS: FOLIC ACID 1 MG TAB PO SCH (09:22)
[2021-02-27] MEDS: ASPIRIN 81 MG CHEW (CHILDREN'S ASA) PO SCH (09:23)
--- NOTE | 2021-02-27 09:44 | Cardiology Progress Note ---
Progress Note-Cardiology Events since last exam Date Seen by Provider: Feb 27, 2021 Time Seen by Provider: 09:40 Events since last exam I am following the patient due to atrial fibrillation and heart failure. He is difficult to understand as usual and appears to be his baseline. He denies chest pain, dyspnea, palpitations, syncope, or ankle edema. Certain portions of this document may have been dictated utilizing voice recognition technology. Inherent to this technology, typographical and grammatical errors may exist. As much as I am diligent to identify and correct these mistakes, some errors may remain in the document. Vitals Last set of Vitals Signs Vital Signs 02/24/21 02/27/21 02/27/21 02/27/21 16:34 11:15 13:00 13:45 Temp 35.0 Pulse 117 Resp 16 B/P (MAP) 119/86 (97) Pulse Ox 95 O2 Delivery Room Air O2 Flow Rate 2.00 FiO2 21 Labs Labs Laboratory Tests 02/27/21 05:18 Exam Vital Signs Vital Signs Date Time Temp Pulse Resp B/P (MAP) Pulse Ox O2 Delivery O2 Flow Rate FiO2 02/27/21 13:45 Room Air 02/27/21 13:00 117 02/27/21 11:15 35.0 16 119/86 (97) 95 2.00 02/24/21 16:34 21 Physical Exam General: Alert. No acute distress. He is disheveled. Eye: No xanthelasma. HENT: Normocephalic. Edentulous. Neck: Jugular venous pressure does not appear elevated. Respiratory: Lungs are clear to auscultation. Respirations are non-labored. Breath sounds are equal. Symmetrical chest wall expansion. Cardiovascular: Tachycardia with irregular rhythm. No murmur. No gallop. No e zurdo. Gastrointestinal: Soft. Normal bowel sounds. Skin: Warm. Dry. Neurologic: Alert and oriented to person but not place or time, unchanged. Cranial nerves 3-11 grossly intact. Psychiatric: Cooperative. Confused, unchanged. Labs Laboratory Tests Test 02/27/21 05:18 Range/Units Sodium Level 135 135-145 MMOL/L Potassium Level 3.2 L 3.6-5.0 MMOL/L Chloride Level 94 L 98-107 MMOL/L Carbon Dioxide Level 29 21-32 MMOL/L Anion Gap 12 5-14 MMOL/L Blood Urea Nitrogen 20 H 7-18 MG/DL Creatinine 0.89 0.60-1.30 MG/DL Estimat Glomerular Filtration Rate 85 BUN/Creatinine Ratio 22 Glucose Level 91 70-105 MG/DL Calcium Level 13.4 *H 8.5-10.1 MG/DL Albumin 2.7 L 3.2-4.5 GM/DL Diagnosis/Problems Diagnosis/Problems (1) Persistent atrial fibrillation Assessment & Plan: His telemetry continues to show probable atrial fibrillation. He continues to have tachycardia despite starting metoprolol succinate on 02/26. I will increase the dose. His anticoagulation is presently on hold due to his need for lung surgery. If he is not going to have lung surgery in the near future, one might consider resuming oral anticoagulation. (2) Acute diastolic congestive heart failure Status: Acute Assessment & Plan: His chest x-ray from admission showed evidence of pulmonary congestion and from 02/25 was unchanged. Some of these abnormalities may be due to chronic underlying disease. His ejection fraction is normal. There was no significant valvular heart disease noted on his echocardiogram. I suspect he has heart failure with preserved ejection fraction he continues on IV furosemide. I will obtain a follow-up chest x-ray tomorrow. (3) Pulmonary hypertension Assessment & Plan: His echocardiogram from this admission showed mild pulmonary hypertension. I suspect the majority of this is related to his smoking and probable underlying chronic obstructive pulmonary disease. This can be followed by his regular providers after discharge. (4) Cigarette smoker Assessment & Plan: He needs to quit smoking. He was counseled in this regard. VISHAL HAMILTON JR, MD Feb 27, 2021 09:44
--- NOTE | 2021-02-27 11:17 | Physical Therapy Daily Note ---
PT Daily Note-Current Subjective Patient agrees to PT. Mental Status Attachments: IV Transfers SCALE: Activities may be completed with or without assistive devices. 1-Cnosmahtbr-brtqpje completes the activity by him/herself with no assistance from a helper. 5-Set-up or Clean-up Assistance-helper sets up or cleans up; patient completes activity. [place] assists only prior to or following the activity. 4-Supervision or Touching Assistance-helper provides verbal cues and/or touching/steadying and/or contact guard assistance as patient completes activity. Assistance may be provided throughout the activity or intermittently. 3-Partial/Moderate Assistance-helper does LESS THAN HALF the effort. [place] lifts, holds or supports trunk or limbs, but provides less than half the effort. 2-Substantial/Maximal Assistance-helper does MORE THAN HALF the effort. [place] lifts or holds trunk or limbs and provides more than half the effort. 3-Dxsqbqlqn-shrerl does ALL the effort. Patient does none of the effort to complete the activity. Or, the assistance of 2 or more helpers is required for the patient to complete the activity. If activity was not attempted, code reason: 7-Patient Refused. 9-Not Applicable-not attempted and the patient did not perform the activity before the current illness, exacerbation or injury. 10-Not Attempted due to Environmental Limitations-(lack of equipment, weather restraints, etc.). 88-Not Attempted due to Medical Conditions or Safety Concerns. Sit to Stand (QC): 4 Chair/Iwt-tt-Vtbft Xfer(QC): 4 CGA for safety Gait Training Does the Patient Walk?: Yes Distance: 200' Walk 10 feet (QC): 4 Walk 50 ft with 2 Turns(QC): 4 Walk 150 ft (QC): 4 Gait Assistive Device: FWW CGA for safety with slight unsteady balance/gait sequence requiring PT correction Assessment Patient up in recliner with chair alarm activated. Patient did tell this PT that he does not get out of his room at home very often. SW notified of findings. Noted patient at high risk for falls due to weakness/debility and unawareness of safety concerns. PT Correction Goals Correction Goals PT Service Aide Goals Time Frame: Mar 08, 2021 Roll Left & Right (QC): 6 Sit to Lying (QC): 6 Lying-Sitting on Side/Bed(QC): 6 Sit to Stand (QC): 5 Chair/Mbg-rt-Gyetx Xfer(QC): 5 Toilet Transfer (QC): 5 Does the Patient Walk: Yes Walk 10 feet (QC): 5 Walk 50ft with 2 Turns (QC): 5 Walk 150 ft (QC): 5 Does the Pt use WC or Scooter?: No PT Plan Treatment/Plan Treatment Plan: Continue Plan of Care Treatment Plan: Bed Mobility, Education, Functional Activity Thompson, Functional Strength, Gait, Safety, Therapeutic Exercise, Transfers Treatment Duration: Mar 08, 2021 Frequency: 6 times per week Estimated Hrs Per Day: .25 hour per day Patient and/or Family Agrees t: Yes Time/GCodes Time In: 1020 Time Out: 1034 Total Billed Treatment Time: 14 Total Billed Treatment 1 visit GT 14 min FRANSICO NAVA PT Feb 27, 2021 11:17
--- NOTE | 2021-02-27 12:13 | Progress Note - Hospitalist ---
Subjective HPI/CC On Admission Date Seen by Provider: Feb 27, 2021 Time Seen by Provider: 09:50 Pt is a 70yoCM with a PMH of a-fib, HTN, chronic alcohol use, tobacco abuse who presented to the ER due to back and shortness of breath. He is an exceptionally poor historian and can tell me very little of his medical history and his acute illness. Most history is obtained from the ER report and by discussing his case with his PCP Doreen Faustin UND[facility] PR[employer]ER in [place]. He states he had back pain and that gave him shortness of breath. Otherwise he has no complaints. We discussed his imaging from [place] and concern for cancer. He tells me that it is not cancer. When asked if he has had a biopsy he said no. I spoke with his PCNP who states he has had a biopsy done and they thought the lung mass was due to infection. She did not have culture results available. She reports he is supposed to have a lobectomy done and is off anticoagulation for that surgery but he has not called his insurance to get it approved. Subjective/Events-last exam He is doing about the same today. He denies pain. He denies shortness of breath. He says he feels well enough to go home. We discussed his lung mass. I spoke with his primary care physician and they state that he was scheduled for a biopsy in November but never had this done. He was also scheduled for lobectomy and never followed up for that. I discussed with him that his imaging was consistent with metastatic lung cancer to the liver and bones. The only treatment option at this time would be palliative chemotherapy. We discussed his options and he would like to pursue hospice. Focused Exam Lactate Level 02/25/21 05:30: Lactic Acid Level 1.89 Objective Exam Vital Signs Vital Signs Date Time Temp Pulse Resp B/P (MAP) Pulse Ox O2 Delivery O2 Flow Rate FiO2 02/27/21 11:15 35.0 74 16 119/86 (97) 95 Nasal Cannula 2.00 02/24/21 16:34 21 Capillary Refill : General Appearance: Chronically ill, Cachetic Respiratory: No Respiratory Distress, Wheezing Cardiovascular: No Murmur, Irregularly Irregular Gastrointestinal: Normal Bowel Sounds, Non Tender, Soft Extremity: Normal Inspection, Non Tender, No Pedal Edema Neurologic/Psychiatric: Alert, Depressed Affect Skin: Warm/Dry, Mottled Results/Procedures Lab Laboratory Tests 02/27/21 05:18 Patient resulted labs reviewed. Imaging: Reviewed Imaging Report Assessment/Plan Assessment and Plan Assess & Plan/Chief Complaint Presumed metastatic lung cancer to the liver and bones Lung mass Liver and bone lesions Hypercalcemia Goals of care discussion Presumed metastatic lung cancer with hypercalcemia of malignancy Case discussed with PCP office, scheduled for biopsy in November, never performed, scheduled for lobectomy, never performed IV fluids, Lasix, and Pamidronate for hypercalcemia Palliative care consulted, appreciate assistance Planning for discharge with hospice Acute on chronic heart failure with preserved ejection fraction HTN A-fib Cardiology consulted, appreciate recs Echo with normal EF, diastolic function indeterminate Continue home meds Resume Eliquis Lasix Hyponatremia Monitor Alcohol abuse Thiamine, folic acid Tobacco abuse Nicotine patch as needed Debility PT/OT DVT prophylaxis: Lovenox Hypokalemia, resolved Diagnosis/Problems Diagnosis/Problems (1) Lung cancer metastatic to bone Status: Acute (2) Goals of care, counseling/discussion Status: Acute (3) Acute diastolic congestive heart failure Status: Acute (4) Hypercalcemia Status: Acute (5) Lung mass Status: Acute (6) Liver lesion Status: Acute (7) Bone lesion Status: Acute (8) Afib Status: Acute Qualifiers: Atrial fibrillation type: persistent (not longstanding) Qualified Codes: I48.19 - Other persistent atrial fibrillation (9) Debility Status: Acute LISA CORTEZ MD Feb 27, 2021 12:13
--- NOTE | 2021-02-27 14:12 | Occupational Ther Daily Note ---
OT Current Status-Daily Note Subjective Pt laying in bed, agreeable to OT tx. Pt difficult to understand but after repeating himself several times, OT able to understand pt better. At end of tx, pt attempting to get out of bed to go to [employer] or the [email or web address] store for cookies. Mental Status/Objective Patient Orientation: Person, Confused ADL-Treatment Therapy Code Descriptions/Definitions Functional [place] Measure: 0=Not Assessed/NA 4=Minimal Assistance 1=Total Assistance 5=Supervision or Setup 2=Maximal Assistance 6=Modified [place] 3=Moderate Assistance 7=Complete IndependenceSCALE: Activities may be completed with or without assistive devices. 6-Jehxtckpkx-ygivksl completes the activity by him/herself with no assistance from a helper. 5-Set-up or Clean-up Assistance-helper sets up or cleans up; patient completes activity. [place] assists only prior to or following the activity. 4-Supervision or Touching Assistance-helper provides verbal cues and/or touching/steadying and/or contact guard assistance as patient completes activity. Assistance may be provided throughout the activity or intermittently. 3-Partial/Moderate Assistance-helper does LESS THAN HALF the effort. [place] lifts, holds or supports trunk or limbs, but provides less than half the effort. 2-Substantial/Maximal Assistance-helper does MORE THAN HALF the effort. [place] lifts or holds trunk or limbs and provides more than half the effort. 3-Ocxhohbps-szjdyq does ALL the effort. Patient does none of the effort to complete the activity. Or, the assistance of 2 or more helpers is required for the patient to complete the activity. If activity was not attempted, code reason: 7-Patient Refused. 9-Not Applicable-not attempted and the patient did not perform the activity before the current illness, exacerbation or injury. 10-Not Attempted due to Environmental Limitations-(lack of equipment, weather restraints, etc.). 88-Not Attempted due to Medical Conditions or Safety Concerns. Eating (QC): 5 (set up assist. Assist to open containers.) Other Treatment Pt laying in bed, agreeable to OT tx. OT handed pt a hair brush but pt did not initiate task. OT assisted pt with combing his hair, pt then told OT to stop. OT handed brush back to pt, but he did not brush his hair. OT assisted pt with opening his milk container and putting straw into glasses, he was then able to take a drink. Pt attempted to get out of bed, setting off bed alarm. Pt states jimi kumar wants to go to the [employer] or [employer] in order to get cookies. OT informed pt he was in a hospital and unable to go to the store. Pt instructed pt to scoot towards center of bed, pt able to without assistance. Bed alarm reset. Post tx, pt laying in bed, call light in reach and all needs met, bed alarm activated. Education OT Patient Education: Correct positioning, Modified ADL techniques, Progress toward Goal/Update tx plan, Purpose of tx/functional activities, Rehab process, Safety issues Teaching Recipient: Patient Teaching Methods: Discussion Response to Teaching: Reinforcement Needed OT Short Term Goals Short Term Goals Time Frame: Mar 04, 2021 Eatin Oral hygiene: 4 Toileting hygiene: 4 Shower/bathe self: 3 Upper body dressin Lower body dressin Putting on/taking off footwear: 4 OT Geophysics Professor Goals Geophysics Professor Goals Time Frame: Mar 11, 2021 Eating (QC): 6 Oral Hygiene (QC): 6 Toileting Hygiene (QC): 6 Shower/Bathe Self (QC): 4 Upper Body Dressing (QC): 5 Lower Body Dressing (QC): 4 On/Off Footwear (QC): 6 Additional Goals: 1-Demonstrate ADL Tasks, 2-Verbalize Understanding, 3- ImproveStrength/Thompson 1=Demonstrate adherence to instructed precautions during ADL tasks. 2=Patient will verbalize/demonstrate understanding of assistive oksana cecilia/modifications for ADL. 3=Patient will improve strength/tolerance for activity to enable patient to perform ADL's. OT Education/Plan Problem List/Assessment Assessment: Decreased Activ Tolerance, Decreased Safety Aware, Decreased UE Strength, Impaired Funct Balance, Impaired I ADL's, Impaired Self-Care Skills Discharge Recommendations Plan/Recommendations: Continue POC Treatment Plan/Plan of Care Patient would benefit from OT for education, treatment and training to promote independence in ADL's, mobility, safety and/or upper extremity function for ADL's. Plan of Care: ADL Retraining, Functional Mobility, UE Funct Exercise/Act Treatment Duration: Mar 11, 2021 Frequency: 5 times per week Rehab Potential: Guarded Time/GCodes Start Time: 13:00 Stop Time: 13:12 Total Time Billed (hr/min): 12 Billed Treatment Time 1, ADL CARLTON AGUILAR OT Feb 27, 2021 14:12
[2021-02-27] MEDS: ENOXAPARIN 30 MG/0.3 ML (LOVENOX) SYR SC SCH (16:23)
[2021-02-28] MEDS: NS IV 1000 ML 1,000 ML IV SCH (00:10)
[2021-02-28] MEDS: RT-ALBUTEROL/IPRATROPIUM 3 ML (DUONEB) VIAL INH SCH (02:29)
[2021-02-28 03:19] VITALS: BP 109/77
[2021-02-28 06:17] VITALS: BP 109/77
[2021-02-28] MEDS: THIAMINE 100 MG (VITAMIN B-1) TAB PO SCH (06:43)
[2021-02-28 08:11] VITALS: BP 125/74
[2021-02-28] MEDS: ASPIRIN 81 MG CHEW (CHILDREN'S ASA) PO SCH (08:37)
[2021-02-28] MEDS: FOLIC ACID 1 MG TAB PO SCH (08:37)
[2021-02-28] MEDS: FUROSEMIDE 40 MG/4 ML INJ (LASIX) IVP SCH (08:37)
[2021-02-28] MEDS: NICOTINE PATCH REMOVAL TP SCH (08:38)
[2021-02-28 08:45] LABS: POTASSIUM 2.8 MMOL/L (3.6-5.0)
[2021-02-28 08:46] LABS: CALCIUM 12.2 MG/DL (8.5-10.1)
[2021-02-28 08:51] LABS: CREATININE SERUM 0.89 MG/DL (0.60-1.30)
[2021-02-28 08:53] LABS: MAGNESIUM 1.8 MG/DL (1.6-2.4)
--- NOTE | 2021-02-28 08:58 | Cardiology Progress Note ---
Progress Note-Cardiology Events since last exam Date Seen by Provider: Feb 28, 2021 Time Seen by Provider: 08:57 Events since last exam I am seeing him due to atrial fibrillation and heart failure. He states that he feels good this morning. He denies dyspnea. He denies chest pain, palpitations, syncope, or ankle edema. Certain portions of this document may have been dictated utilizing voice recognition technology. Inherent to this technology, typographical and grammatical errors may exist. As much as I am diligent to identify and correct these mistakes, some errors may remain in the document. Vitals Last set of Vitals Signs Vital Signs 02/27/21 02/28/21 02/28/21 11:15 06:17 08:11 Temp 36.6 Pulse 93 Resp 18 B/P (MAP) 125/74 (91) Pulse Ox 99 O2 Delivery Room Air O2 Flow Rate 2.00 FiO2 21 Labs Labs Laboratory Tests 02/28/21 08:00 Exam Vital Signs Vital Signs Date Time Temp Pulse Resp B/P (MAP) Pulse Ox O2 Delivery O2 Flow Rate FiO2 02/28/21 08:11 36.6 93 18 125/74 (91) 99 Room Air 02/28/21 06:17 21 02/27/21 11:15 2.00 Physical Exam General: Alert. No acute distress. He is disheveled. He is easier to understand today. Eye: No xanthelasma. HENT: Normocephalic. Neck: Jugular venous pressure does not appear elevated. Respiratory: Lungs are clear to auscultation. Respirations are non-labored. Breath sounds are equal. Symmetrical chest wall expansion. Cardiovascular: Normal rate. Regular rhythm. No murmur. No gallop. No edema. Gastrointestinal: Soft. Normal bowel sounds. Skin: Warm. Dry. Neurologic: Alert and oriented to person, place, time. Cranial nerves 3-11 grossly intact. Psychiatric: Cooperative. Appropriate mood & affect. Labs Laboratory Tests Test 02/28/21 08:00 Range/Units Sodium Level 134 L 135-145 MMOL/L Potassium Level 2.8 L 3.6-5.0 MMOL/L Chloride Level 98 98-107 MMOL/L Carbon Dioxide Level 25 21-32 MMOL/L Anion Gap 11 5-14 MMOL/L Blood Urea Nitrogen 23 H 7-18 MG/DL Creatinine 0.89 0.60-1.30 MG/DL Estimat Glomerular Filtration Rate 85 BUN/Creatinine Ratio 26 Glucose Level 84 70-105 MG/DL Calcium Level 12.2 H 8.5-10.1 MG/DL Magnesium Level 1.8 1.6-2.4 MG/DL Diagnosis/Problems Diagnosis/Problems (1) Persistent atrial fibrillation Assessment & Plan: His telemetry continues to show probable atrial fibrillation. He continues to have tachycardia despite starting metoprolol succinate on 02/26. I increase the dose of beta-kadeem on 02/27. His heart rate seem to be improving. His anticoagulation is presently on hold due to his need for lung surgery. If he is not going to have lung surgery in the near future, one might consider resuming oral anticoagulation. (2) Acute diastolic congestive heart failure Status: Acute Assessment & Plan: His chest x-ray from admission showed evidence of pulmonary congestion and from 02/25 was unchanged. Some of these abnormalities may be due to chronic underlying disease. His ejection fraction is normal. There was no significant valvular heart disease noted on his echocardiogram. I suspect he has heart failure with preserved ejection fraction. His chest x-ray from today is slightly worse. I will increase the dose of furosemide. We will need to watch his renal function closely. (3) Pulmonary hypertension Assessment & Plan: His echocardiogram from this admission showed mild pulmonary hypertension. I suspect the majority of this is related to his smoking and probable underlying chronic obstructive pulmonary disease. This can be followed by his regular providers after discharge. (4) Cigarette smoker Assessment & Plan: He needs to quit smoking. He was counseled in this regard. VISHAL HAMILTON JR, MD Feb 28, 2021 08:58
[2021-02-28] MEDS ORDERED: KCL 20 MEQ TAB (K-DUR) PO ONE (09:00)
[2021-02-28] MEDS ORDERED: meTOproloL SUCCINATE 50 MG (TOPROL XL) TAB PO SCH (09:00)
--- NOTE | 2021-02-28 09:38 | Diagnostic Imaging Report ---
PA and lateral chest at 847h. The cardiomegaly and the left lower lobe pneumonia/atelectasis and fluid seen on the prior exam of 02/26/2020 are again evident. There does seem to be slightly greater fluid extending along the periphery of the left mid lung and left lung base than on the prior exam. The pneumonia/atelectasis involving the left lung is otherwise no different. The upper lungs remain relatively clear. The left hilum does seem prominent. This may merely be due to hilar vessels in this area alone. The possibility that there is a neoplastic hilar mass should also be considered. CT of the chest would be recommended for further evaluation. The mediastinum is not widened. The osseous structures are intact. IMPRESSION: 1. The appearance of the chest has worsened somewhat since the prior exam as there has been a slight increase in the fluid along the periphery of the left mid lung and left lung base. There is persistent involvement of the left lower lobe by pneumonia/atelectasis as well. 2. The left hilum does seem prominent. Considerations and recommendations as above. Dictated by: Dictated on workstation # [id number]
[2021-02-28 11:38] VITALS: BP 143/62
--- NOTE | 2021-02-28 11:39 | Occupational Ther Daily Note ---
OT Current Status-Daily Note Subjective Pt laying in bed, agreeable to OT tx. Mental Status/Objective Patient Orientation: Person, Place, Situation Attachments: IV ADL-Treatment Therapy Code Descriptions/Definitions Functional [place] Measure: 0=Not Assessed/NA 4=Minimal Assistance 1=Total Assistance 5=Supervision or Setup 2=Maximal Assistance 6=Modified [place] 3=Moderate Assistance 7=Complete IndependenceSCALE: Activities may be completed with or without assistive devices. 0-Tfpvbkegnm-gswcqpe completes the activity by him/herself with no assistance from a helper. 5-Set-up or Clean-up Assistance-helper sets up or cleans up; patient completes activity. [place] assists only prior to or following the activity. 4-Supervision or Touching Assistance-helper provides verbal cues and/or touching/steadying and/or contact guard assistance as patient completes activity. Assistance may be provided throughout the activity or intermittently. 3-Partial/Moderate Assistance-helper does LESS THAN HALF the effort. [place] lifts, holds or supports trunk or limbs, but provides less than half the effort. 2-Substantial/Maximal Assistance-helper does MORE THAN HALF the effort. [place] lifts or holds trunk or limbs and provides more than half the effort. 3-Yaefeuema-atgozj does ALL the effort. Patient does none of the effort to complete the activity. Or, the assistance of 2 or more helpers is required for the patient to complete the activity. If activity was not attempted, code reason: 7-Patient Refused. 9-Not Applicable-not attempted and the patient did not perform the activity before the current illness, exacerbation or injury. 10-Not Attempted due to Environmental Limitations-(lack of equipment, weather restraints, etc.). 88-Not Attempted due to Medical Conditions or Safety Concerns. Other Treatment Pt laying in bed, agreeable to OT tx. Pt declines OOB activities at this time, as he was up walking with PT earlier and had just returned to bed after being up in recliner for a couple hours. Pt agreeable to UE exercises in order to increase overall strength and activity tolerance BUEs. Pt completed x15 reps each of the following BUEs: shoulder flexion, elbow flexion, elbow extension, and finger flexion/extension. Pt took rest breaks as needed between exercises. OT instructed pt to continue completing exercises throughout the day, increasing reps as tolerated, he verbalized understanding. Post tx, pt laying in bed, call light in reach and all needs met. Education OT Patient Education: Correct positioning, Energy conservation, Exercise program, Modified ADL techniques, Progress toward Goal/Update tx plan, Purpose of tx/functional activities, Rehab process Teaching Recipient: Patient Teaching Methods: Discussion Response to Teaching: Verbalize Understanding OT Short Term Goals Short Term Goals Time Frame: Mar 04, 2021 Eatin Oral hygiene: 4 Toileting hygiene: 4 Shower/bathe self: 3 Upper body dressin Lower body dressin Putting on/taking off footwear: 4 OT Hop Worker Goals Correction Goals Time Frame: Mar 11, 2021 Eating (QC): 6 Oral Hygiene (QC): 6 Toileting Hygiene (QC): 6 Shower/Bathe Self (QC): 4 Upper Body Dressing (QC): 5 Lower Body Dressing (QC): 4 On/Off Footwear (QC): 6 Additional Goals: 1-Demonstrate ADL Tasks, 2-Verbalize Understanding, 3- ImproveStrength/[place] 1=Demonstrate adherence to instructed precautions during ADL tasks. 2=Patient will verbalize/demonstrate understanding of assistive devices/m odifications for ADL. 3=Patient will improve strength/tolerance for activity to enable patient to perform ADL's. OT Education/Plan Problem List/Assessment Assessment: Decreased Activ Tolerance, Decreased UE Strength, Impaired Funct Balance, Impaired I ADL's, Impaired Self-Care Skills Discharge Recommendations Plan/Recommendations: Continue POC Treatment Plan/Plan of Care Patient would benefit from OT for education, treatment and training to promote independence in ADL's, mobility, safety and/or upper extremity function for ADL's. Plan of Care: ADL Retraining, Functional Mobility, UE Funct Exercise/Act Treatment Duration: Mar 11, 2021 Frequency: 5 times per week Rehab Potential: Guarded Time/GCodes Start Time: 11:00 Stop Time: 11:10 Total Time Billed (hr/min): 10 Billed Treatment Time 1, EX CARLTON AGUILAR OT Feb 28, 2021 11:39
[2021-02-28 12:38] VITALS: BP 143/62
[2021-02-28] MEDS ORDERED: FUROSEMIDE 40 MG/4 ML INJ (LASIX) IVP SCH (15:00)
--- NOTE | 2021-02-28 16:03 | Discharge Summary ---
Discharge Summary Hospital Course Problems/Dx: (1) Lung cancer metastatic to bone Status: Acute (2) Goals of care, counseling/discussion Status: Acute (3) Persistent atrial fibrillation (4) Acute diastolic congestive heart failure Status: Acute (5) Pulmonary hypertension Status: Acute (6) Cigarette smoker Status: Acute Hospital Course Date of Admission: Feb 23, 2021 at 23:06 Admission Diagnosis: Acute on chronic diastolic heart failure exacerbation Family Physician/Provider: Doreen Faustin Aprn Date of Discharge: 02/28/21 Discharge Diagnosis: Metastatic lung cancer to liver and bone Hospital Course: Christopher Dodd is a 70-year-old male who was transferred from the [facility] with acute on chronic diastolic heart failure. He was diuresed and improved. His course was complicated by a lung mass with liver and bone lesions found on CT. The imaging was highly suspicious for metastatic malignancy. His case was discussed with his primary care physician's office. They stated that he had a known lung mass which was supposed to be biopsied in November. He did not follow-up for the biopsy. He was also scheduled for an appointment to discuss lobectomy but this was not followed up on the either. His course was complicated by hypercalcemia which was presumed to be hypercalcemia of malignancy. The lung mass along with the liver and bone lesions are presumed metastatic lung cancer. At this point, palliative chemotherapy would be his only treatment option. We discussed his options and he chose to discharge home on hospice. His family was notified and they assisted in the decision. He was discharged home on hospice. Labs and Pending Lab Test: Laboratory Tests 02/28/21 08:00: Sodium Level 134L, Potassium Level 2.8L, Chloride Level 98, Carbon Dioxide Level 25, Anion Gap 11, Blood Urea Nitrogen 23H, Creatinine 0.89, Estimat Glomerular Filtration Rate 85, BUN/Creatinine Ratio 26, Glucose Level 84, Calcium Level 12.2H, Magnesium Level 1.8 Home Meds Active Reported K-Tab ER (Potassium Chloride) 10 Meq Tablet.er 10 Meq PO DAILY Furosemide 40 Mg Tablet 40 Mg PO DAILY Digoxin 125 Mcg Tablet 125 Mcg PO HS Famotidine 20 Mg Tablet 20 Mg PO HS Montelukast Sodium 10 Mg Tablet 10 Mg PO HS Oyster Shell Calcium (Calcium Carbonate) 500 Mg Tablet 500 Mg PO BID Carvedilol 12.5 Mg Tablet 12.5 Mg PO BID Diltiazem HCl 60 Mg Tablet 60 Mg PO TID Assessment/Pt Instructions Patient discharged on hospice Discharge Planning: >30 minutes discharge planning Discharge Instructions Discharge Diet: No Restrictions Activity as Tolerated: Yes Discharge Physical Examination Vital Signs Vital Signs Date Time Temp Pulse Resp B/P (MAP) Pulse Ox O2 Delivery O2 Flow Rate FiO2 02/28/21 12:38 36.0 91 16 143/62 95 Room Air 02/28/21 06:17 21 02/27/21 11:15 2.00 General Appearance: No Apparent Distress, Chronically ill, Cachetic Respiratory: No Respiratory Distress, Wheezing Cardiovascular: Regular Rate, Rhythm, No Edema, No Murmur Gastrointestinal: Normal Bowel Sounds, Non Tender, Soft Extremity: Normal Inspection, Non Tender, No Pedal Edema Skin: Warm/Dry, Pallor Neurologic/Psychiatric: Alert, Depressed Affect, Motor Weakness Allergies: Coded Allergies: No Known Drug Allergies (Unverified , 02/24/21) Discharge Summary Date of Admission Feb 23, 2021 at 23:06 Date of Discharge Feb 28, 2021 at 12:38 Discharge Date: Feb 28, 2021 Discharge Time: 12:38 Admission Diagnosis CHF exacerbation Discharge Diagnosis Presumed metastatic lung cancer to the liver and bones (1) Lung cancer metastatic to bone Status: Acute (2) Hypercalcemia Status: Acute (3) Goals of care, counseling/discussion Status: Acute (4) Persistent atrial fibrillation (5) Acute diastolic congestive heart failure Status: Acute (6) Pulmonary hypertension Status: Acute (7) Cigarette smoker Status: Acute LISA CORTEZ MD Feb 28, 2021 16:01
== END 2021-02-28 12:38 | disposition hospice, home (50) ==
LOC: 4TH 23:06
PROVIDERS: ADMIT Family Medicine; ATTEND Internal Medicine
DX: C34.90 Malignant neoplasm of unspecified part of unspecified bronchus or lung (principal); C79.51 Secondary malignant neoplasm of bone; I48.19 Other persistent atrial fibrillation; I11.0 Hypertensive heart disease with heart failure; I50.31 Acute diastolic (congestive) heart failure; I27.20 Pulmonary hypertension, unspecified; F17.210 Nicotine dependence, cigarettes, uncomplicated; E83.52 Hypercalcemia; E87.1 Hypo-osmolality and hyponatremia; F10.10 Alcohol abuse, uncomplicated; I82.409 Acute embolism and thrombosis of unspecified deep veins of unspecified lower extremity; Z79.01 Long term (current) use of anticoagulants
CPT/HCPCS: 36415; 71045; 71046; 80048; 80053; 80061; 82040; 83605; 83735; 84100; 84145; 85007; 85025; 85027; 87636; 93005; 93306; 94640; 94760; 99211; G0378